=== PATIENT | female | born 1955 | race Two or more races ===

== ENCOUNTER 2025-02-27 13:47 | Emergency (ER) | payer BC, OTHER ==
[~2025-02-27] VITALS: Ht 170.2 cm; Wt 50.0 kg
[2025-02-27 15:02] VITALS: BP 134/51; PULSE 88; RESP 16; TEMP 98.8; O2SAT 98
--- NOTE | 2025-02-27 15:36 | ED.PDOC ---
Musculoskeletal HPI Comments A 69 YEAR OLD FEMALE SHILPA PRESENTS TO THE ED WITH CHIEF COMPLAINT OF RIGHT HAND PAIN. PATIENT REPORTS THAT SHE HAD SMOKED METHAMPHETAMINE EARLIER TODAY AND WHEN TAKING A NAP, SHE FELL ASLEEP ON HER RIGHT HAND. PATIENT RELAYS THAT WHEN SHE WOKE UP, HER RIGHT HAND WAS IN PAIN AND SHE WAS NOT ABLE TO OPEN IT WELL. PATIENT DENIES ANY NUMBNESS, WEAKNESS, TINGLING, INJURY, OR FALL. NO OTHER SYMPTOMS REPORTED AT THIS TIME OF CARE. Chief Complaint: Upper Extremity Time Seen by MD: 15:29 Primary Care Provider: UNKNOWN Reviewed Notes: Nurses Notes, Medications, Allergies Allergies: Coded Allergies: Fluoxetine (Verified Allergy, Unknown, 02/27/25) Sulfa Antibiotics (Verified Allergy, Unknown, 02/27/25) Home Meds Active Scripts Naproxen (Naproxen) 500 Mg Tab, 500 MG PO BID, #30 TAB Prov:KIMBER MUÑOZ 02/27/25 Information Source: Patient, Emergency Med Personnel Mode of Arrival: EMS Location: Right Extremity Location: Hand Timing: Hours Prehospital treatment: None Severity: Mild Able to Move Extremity: Yes Bear Weight: Fully Pain: Mild Mechanism: No Trauma Circumstances: Spontaneous Onset of Symptoms: Spontaneous Symptoms: Pain DVT Risk Factors: NONE Associated signs and symptoms: Hand pain Past Medical History PAST MEDICAL HISTORY: Denies Surgical History: Denies all surgeries SPORTS TRAINER History: No Pertinent SPORTS TRAINER History Family History Family History: Reviewed,noncontributory to illness Social History Smoker: Non-Smoker Alcohol: Denies ETOH Use Drugs: Denies Drug Use Lives In: Home Constitutional: denies: chills, diaphoresis, fatigue, fever, malaise, sweats, weakness, others EENTM: denies: blurred vision, double vision, ear bleeding, ear discharge, ear drainage, ear pain, ear ringing, eye pain, eye redness, hearing loss, mouth pain, mouth swelling, nasal discharge, nose bleeding, nose congestion, nose pain, photophobia, tearing, throat pain, throat swelling, voice changes, others Respiratory: denies: cough, hemoptysis, orthopnea, SOB at rest, shortness of breath, SOB with excertion, stridor, wheezing, others Cardiovascular: denies: chest pain, dizzy spells, diaphoresis, Dyspnea on ex ertion, edema, irregular heart beat, left arm pain, lightheadedness, palpitations, PND, syncope, others Gastrointestinal: denies: abdomen distended, abdominal pain, blood streaked bowels, constipated, diarrhea, dysphagia, difficulty swallowing, hematemesis, melena, nausea, poor appetite, poor fluid intake, rectal bleeding, rectal pain, vomiting, others Genitourinary: denies: abnormal vagina bleeding, burning, dyspareunia, dysuria, flank pain, frequency, hematuria, incontinence, pain, , vagina discharge, urgency, others Neurological: denies: dizziness, fainting, headache, left sided numbness, left sided weakness, numbness, paresthesia, pre-existing deficit, right sided numbness, right sided weakness, seizure, speech problems, tingling, tremors, weakness, others Musculoskeletal: reports: joint pain, muscle pain, others (RT HAND PAINRT HAND PAIN); denies: back pain, gout, joint swelling, muscle stiffness, neck pain Integumetry: denies: bruises, change in color, change in hair/nails, dryness, laceration, lesions, lumps, rash, wounds, others Allergic/Immunocompromised: denies: Difficulty Healing, Frequent Infections, Hives, Itching, others Hematologic/Lymphatic: denies: anemia, blood clots, easy bleeding, easy bruising, swollen glands, others Endocrine: denies: excessive hunger, excessive sweating, excessive thirst, excessive urination, flushing, intolerance to cold, intolerance to heat, unexplained weight gain, unexplained weight loss, others Psychiatric: denies: anxiety, bipolar disorder, depression, hopeless, panic disorder, schizophrenia, sleepless, suicidal, others All Other Systems: Reviewed and Negative Physical Exam General Appearance: No Apparent Distress, Normal HEENT: Normal ENT Inspection, PERRL/EOMI, Pharynx Normal, TMs Normal Neck: Full Range of Motion, Non-Tender, Normal, Normal Inspection Respiratory: Chest Non-Tender, Lungs Clear, No Accessory Muscle Use, No Respiratory Distress, Normal Breath Sounds Cardiovascular: No Edema, No JVD, No Murmur, No Gallop, Normal Peripheral Pulses, Regular Rate/Rhythm Breast Exam: Deferred Gastrointestinal: No Organomegaly, Non Tender, No Pulsatile Mass, Normal Bowel Sounds, Soft Genitalia: Deferred Pelvic: Deferred Rectal: Deferred Extremities: No calf tenderness, Normal capillary refill, Normal range of motion, No pedal edema, Tender (ON RIGHT HAND, NO BONY TENDERNESS, SWELLING AND DEFORMITY, NORMAL ROM, NEUROVASCULAR INTACT. ) Musculoskeletal : Apperance: Normal Neurologic: Alert, cutter operator tile II-XII nml as Tested, No Motor Deficits, Normal Affect, Normal Mood, No Sensory Deficits Cerebellar Function: Normal Reflexes: Normal Skin: Dry, Normal Color, Warm Peripheral Pulses: 2+ carotid (R), 2+ carotid (L), 2+ Radial (R), 2+ Radial (L) Lymphatic: No Adenopathy Was a procedure done? Was a procedure done?: No Differential Diagnosis EXT Differential Diagnosis: Contusion, Strain, Arthritis, Bursitis X-Ray, Labs, Meds, VS Vital Signs Date Time Temp Pulse Resp B/P (MAP) Pulse Ox O2 Delivery O2 Flow Rate FiO2 02/27/25 15:02 88 16 98 Room Air 02/27/25 15:02 98.8 88 16 134/51 (78) 98 98.8 02/27/25 14:12 98.8 88 16 134/51 (78) 98 98.8 X-Ray, Labs, Meds, VS Comment EXTERNAL MEDICAL RECORDS REVIEWED: [NONE] INDEPENDENT HISTORIANS: [NONE] SOCIAL DETERMINANTS OF HEALTH: METHAMPHETAMINE USE LABS ORDERED: NONE REVIEWED AND INTERPRETED RESULTS: RT HAND XR INTERPRETED BY ME. NO ACUTE FINDINGS, MILD DJD OF RIGHT HAND. NO FRACTURES OR DISLOCATION. PENDING RADIOLOGIST REPORT. IMAGING ORDERED: RT HAND XR TREATMENTS ORDERED: BLACK BRACE OF RIGHT HAND PROCEDURES PERFORMED: NONE CRITICAL CARE TIME: NONE I HAVE DISCUSSED THE PATIENT WITH THE ATTENDING PHYSICIAN DR. MENG AND HE AGREES WITH THE PATIENT'S PLAN OF CARE AND DISPOSITION. BASED ON HISTORY OF PRESENT ILLNESS, AND PHYSICAL EXAM, PATIENT WILL BE DISCHARGED HOME. DISCUSSED PLAN FOR DISCHARGE HOME. RX: NAPROXEN 500MG SHARED DECISION MAKING: DISCUSSED WITH PATIENT THAT THEIR WORKUP WAS NORMAL. PATIENT INSTRUCTED TO FOLLOW UP WITH PRIMARY CARE PROVIDER IN 1-2 DAYS FOR RE- EVALUATION OF SYMPTOMS. PATIENT VERBALIZES UNDERSTANDING TO RETURN TO ED FOR NEW OR WORSENING SYMPTOMS OR IF FOLLOW UP WITH PCP CANNOT BE OBTAINED. PATIENT FEELS COMFORTABLE GOING HOME AT THIS TIME. ALL QUESTIONS ADDRESSED AT TIME OF DISCHARGE. Time of 1ST Reevaluation: 15:45 Reevaluation 1ST: Improved Patient Education/Counseling: Diagnosis, Treatment, Need For Follow Up Family Education/Counseling: Diagnosis, Treatment, No Family Present Medical Screening: No EMC Exist At This Time Departure 1 Departure Time of Disposition: 15:45 Impression: Primary Impression: Arthritis of right hand Additional Impression: Right hand pain Disposition: HOME / SELF CARE / HOMELESS Condition: Stable Additional Instructions: FOLLOW-UP WITH PCP IN 1 TO 2 DAYS. TAKE MEDICATIONS PRESCRIBED. RETURN TO ED FOR ANY NEW OR WORSENING SYMPTOMS. e-Prescriptions Naproxen (Naproxen) 500 Mg Tab 500 MG PO BID, #30 TAB Prov: KIMBER MUÑOZ 02/27/25 Discharged With: Self Critical Care Note Critical Care Time?: No Stability Stability form required: No Heart Score Heart Score: Heart Score Response (Comments) Value History N/A 0 EKG N/A 0 Age N/A 0 Risk Factors N/A 0 Troponin N/A 0 Total 0 I personally scribed for KIMBER MUÑOZ ([email or web address]) on 02/27/25 at 15:36. Electronically submitted by Robert Egan ([email or web address]). KIMBER MUÑOZ February 27, 2025 15:36
[2025-02-27] MEDS ORDERED: NAPR-746 PO (15:43)
--- NOTE | 2025-02-27 15:53 | DVH ---
XY R HAND 3 VIEW XRAY, INDICATION: POSSIBLE FALL TECHNICAL DATA: Frontal, oblique and lateral views were obtained of the right hand. COMPARISON: None FINDINGS: No fracture is identified. Joint spaces are maintained. Alignment is anatomic. Soft tissues are withi n normal limits. IMPRESSION: No acute fracture or dislocation of the right hand.
== END 2025-02-27 15:48 | disposition home or self-care (01) ==
LOC: ER 13:47 → EDBD 13:47 → ER 15:48
DX: M19.041 Primary osteoarthritis, right hand (principal); M79.641 Pain in right hand; F17.200 Nicotine dependence, unspecified, uncomplicated; Z88.2 Allergy status to sulfonamides
CPT/HCPCS: 73130